=== PATIENT | female | born 1990 | race American Indian/Alaskan Native ===

== ENCOUNTER 2017-10-10 09:40 | Day surgery (SDC) | payer BC ==
--- NOTE | 2017-10-09 23:20 | Short Stay Summary ---
Short Stay Documentation Date of service: 10/08/17 Narrative H&P: Excessive and frequent irregular menstruation Plan and procedure discussed with patient, H&P reviewed, patient reassessed. No interval changes. - History Principal diagnosis: Excessive and frequent irregular menstruation Past Medical History: anemia Past Surgical History: No surgical history Social history: no significant social history - Allergies and Medications Current Medications: Allergies No Known Allergies Allergy (Unverified 10/06/17 12:52) Home Medications Medication Instructions Recorded Confirmed Last Taken Type ALBUTEROL NEB's [Proventil 0.083% 1 puff INHALATION PRN 10/06/17 10/06/17 Unknown History NEBS] Albuterol Sulfate [Ventolin Hfa] 1 puff INHALATION PRN 10/06/17 10/06/17 Unknown History Loestrin 21 1.5-30 Tablet 1 tab PO TID 10/06/17 10/06/17 Unknown History Lo Loestrin FeSO4 - Physical exam General appearance: no acute distress Lungs: Clear to auscultation Breasts: deferred Heart: Regular rate Gastrointestinal: other (obese) Female Genitourinary: other (unable to palpate uterus) - Brief post op/procedure progress note Date of procedure: 10/10/17 Pre-op diagnosis: Excessive and frequent irregular menstruation Post-op diagnosis: same Procedure: 1. Cervical dilation 2. Diagnostic hysteroscopy 3. Uterine curettage Anesthesia: MAC Findings: No obvious abnormalities were visualized Surgeon: ISAI CORONADO Estimated blood loss: minimal Specimen disposition: to lab Condition: stable - Hospital course Hospital course: 27-year-old female 0 para 0 with a history of anemia due to excessive and frequent irregular distraction. She presents today for diagnostic hysteroscopy with uterine curettage. Hospital course was unremarkable procedure was uncomplicated - Disposition Condition at discharge: Good Disposition: DC-[id number] TO HOME OR SELFCARE - Discharge Diagnoses (1) Excessive and frequent menstruation with irregular cycle Status: Acute (2) BMI 50.0-59.9, adult Status: Acute Short Stay Discharge Plan Activity: other (no sex for 1 week) Weight Bearing Status: Full Weight Bearing Diet: regular Special Instructions: no heavy lifting (greater than 25 pounds) Follow up with: CINDY SHIPLEY MD [Primary Care Provider] - 7 Days ISAI CORONADO MD [Staff Physician] - (As Scheduled)
[2017-10-10] MEDS ORDERED: DIPRIVAN 10 MG/ML IV ONE (10:54)
[2017-10-10] MEDS ORDERED: SUBLIMAZE ONE (10:54)
[2017-10-10] MEDS ORDERED: XYLOCAINE MPF 2% ONE (10:55)
[2017-10-10 11:10] LABS: Hematocrit 29.1 % (30.3-42.9)
--- NOTE | 2017-10-10 11:13 | Anesthesia Consultation ---
Anesthesia Consult and Med Hx Date of service: 10/10/17 - Airway Anesthetic Teeth Evaluation: Good ROM Head & Neck: Adequate Mental/Hyoid Distance: Adequate Mallampati Class: Class I Intubation Access Assessment: Good - Pulmonary Exam CTA: Yes - Cardiac Exam Cardiac Exam: RRR - Pre-Operative Health Status ASA Pre-Surgery Classification: ASA2 Proposed Anesthetic Plan: General - Pulmonary Hx Smoking: No Hx Asthma: Yes (INHALER PRN) Hx Sleep Apnea: No (MUSA PRE SCREEN LOW RISK.) - Cardiovascular System Hx Hypertension: No - Hematic Hx Anemia: Yes - Other Systems Hx Cancer: No
[2017-10-10] MEDS ORDERED: LACTATED RINGERS 1,000 ML IV SCH (12:00)
[2017-10-10] MEDS ORDERED: ANCEF/STERILE WATER 2 GM/20 ML IV NR (12:00)
[2017-10-10] MEDS ORDERED: ZOFRAN ONE (12:32)
[2017-10-10] MEDS ORDERED: SORBITOL-MANNITOL IRRIG IR ONE (12:40)
--- NOTE | 2017-10-10 13:26 | Operative Report ---
Operative Report Operative Report: Date: 10/10/2017 Preoperative diagnosis: 1. Excessive and frequent irregular menstruation 2. Anemia 3. Body mass index 53 Postoperative diagnosis: 1. 1. Excessive and frequent irregular menstruation 2. Anemia 3. Body mass index 53 . Procedure: 1. Cervical dilation 2. Diagnostic hysteroscopy 3. Uterine curettage Surgeon: Esthela Dougherty MD Racking Machine Operator: [] Anesthesiologist: Dr. Sommers Anesthesia: Monitored anesthetic care EBL: Minimal Findings: No obvious evidence of endometrial pathology Distention medium: Sorbitol Fluid deficit: 50 mL Procedure: After risks, benefits, complications, consequences and alternatives for this procedure were explained, and patient voiced her understanding and her desire to proceed, she is taken to the OR and placed in the supine position. General anesthesia was induced. She was placed in the dorsolithotomy position. Exam under anesthesia was unremarkable. She was then prepped and draped in usual sterile fashion. Timeout was performed. A Butler catheter was introduced into the bladder with drainage of clear yellow urine. A operative speculum was introduced was introduced into the vagina. The anterior lip of the cervix was grasped with single-tooth tenaculum and the uterus was sounded to 7 cm. The cervix was progressively dilated to allow the diagnostic hysteroscope. The above findings were noted. Uterine curettage was then performed. The procedure was ended. No obvious of perforation. The speculum and the tenaculum were removed. Hemostasis was noted. The Butler catheter was removed. No bleeding from the tenaculum site was noted. Clear yellow urine was draining into the Butler catheter at the end of the procedure. Patient tolerated procedure well and taken to recovery room in stable condition.
[2017-10-10] MEDS ORDERED: DILAUDID IV PRN (13:32)
[2017-10-10] MEDS: DILAUDID IV PRN ×2 (13:45→13:55)
[2017-10-10 15:12] VITALS: BP 130/82
--- NOTE | 2017-10-13 05:56 | Post Anesthesia Evaluation ---
- Post Anesthesia Evaluation Patient Participated: Yes Airway Patent: Yes Stable Respiratory Function: Yes Nausea/Vomiting: No Temp > 96.8F: Yes Pain Manageable: Yes Adequeate Hydration: Yes Anesthesia Complications: No Block Receding Appropriately: Not Applicable Patient on Ventilator: No
== END 2017-10-10 15:10 | disposition home or self-care (01) ==
LOC: OR 09:40
PROVIDERS: ATTEND Obstetrics & Gynecology
DX: N92.0 Excessive and frequent menstruation with regular cycle (principal); D64.9 Anemia, unspecified; J45.909 Unspecified asthma, uncomplicated
CPT/HCPCS: 36415; 58558; 81025; 85014; 85018; 88305; J0690; J1170; J2405; J2704; J3010; J7120